=== PATIENT | male | born 1985 | race American Indian/Alaskan Native ===

== ENCOUNTER 2020-12-11 02:13 | Emergency (ER) | payer SELFPAY ==
[2020-12-11 02:30] VITALS: BP 149/102
--- NOTE | 2020-12-11 03:53 | Emergency Department Report ---
ED Male HPI - General Chief complaint: Urogenital-Male Stated complaint: TROUBLE URINATING BUMP ON PENIS Time Seen by Provider: 12/11/20 03:37 Source: patient Mode of arrival: Ambulatory Limitations: No Limitations - History of Present Illness Initial comments: Patient is a 35-year-old male that presents emergency room for dysuria. Patient states he has had a history of urinary tract infections and prostatitis. Patient states he is having the same symptoms. Patient states he has been urinary frequency as well as dysuria. Patient states the pain is worsening. Patient denies abdominal pain. Patient denies fever and chills. Patient denies chest pain shortness of breath. Patient denies recent travel. Patient denies recent international travel. Patient denies exposure to the novel coronavirus. Patient denies sick contacts. Patient denies fever and chills. Patient denies cough. Patient denies diarrhea. Patient denies coming in contact with anybody with symptoms of the novel coronavirus. MD Complaint: dysuria -: Sudden Quality: aching Consistency: constant, intermittent Improves with: rest Worsens with: urination dysuria. denies: discharge, swelling, mass, rash, urinary retention, blood in urine, fever, nausea/vomiting, incontinence - Related Data Sexually active: Yes Previous Rx's Medication Instructions Recorded Last Taken Type Ciprofloxacin HCl 500 mg PO BID 10 Days #20 tablet 12/11/20 Unknown Rx Phenazopyridine [Pyridium] 200 mg PO TID 2 Days #6 tab 12/11/20 Unknown Rx Tamsulosin [Flomax] 0.4 mg PO QDAY 10 Days #10 cap 12/11/20 Unknown Rx ED Review of Systems ROS: Stated complaint: TROUBLE URINATING BUMP ON PENIS Other details as noted in HPI Constitutional: denies: chills, fever Eyes: denies: eye pain, eye discharge, vision change ENT: denies: ear pain, throat pain Respiratory: denies: cough, shortness of breath, wheezing Cardiovascular: denies: chest pain, palpitations Endocrine: no symptoms reported Gastrointestinal: denies: abdominal pain, nausea, diarrhea Genitourinary: as per HPI, dysuria. denies: urgency Musculoskeletal: denies: back pain, joint swelling, arthralgia Skin: denies: rash, lesions Neurological: denies: headache, weakness, paresthesias Psychiatric: denies: anxiety, depression Hematological/Lymphatic: denies: easy bleeding, easy bruising ED Past Medical Hx - Past Medical History Previous Medical History?: No - Surgical History Past Surgical History?: No - Family History Family history: no significant - Social History Smoking Status: Never Smoker Substance Use Type: None - Medications Home Medications: Home Medications Medication Instructions Recorded Confirmed Last Taken Type Ciprofloxacin HCl 500 mg PO BID 10 Days #20 tablet 12/11/20 Unknown Rx Phenazopyridine [Pyridium] 200 mg PO TID 2 Days #6 tab 12/11/20 Unknown Rx Tamsulosin [Flomax] 0.4 mg PO QDAY 10 Days #10 cap 12/11/20 Unknown Rx ED Physical Exam - General Limitations: No Limitations General appearance: alert, in no apparent distress - Head Head exam: Present: atraumatic, normocephalic - Eye Eye exam: Present: normal appearance - ENT ENT exam: Present: mucous membranes moist - Neck Neck exam: Present: normal inspection - Respiratory Respiratory exam: Present: normal lung sounds bilaterally. Absent: respiratory distress - Cardiovascular Cardiovascular Exam: Present: regular rate, normal rhythm. Absent: systolic murmur, diastolic murmur, rubs, gallop - GI/Abdominal GI/Abdominal exam: Present: soft, normal bowel sounds - Rectal Rectal exam: Present: deferred - Extremities Exam Extremities exam: Present: normal inspection - Back Exam Back exam: Present: normal inspection - Neurological Exam Neurological exam: Present: alert, oriented X3 - Psychiatric Psychiatric exam: Present: normal affect, normal mood - Skin Skin exam: Present: warm, dry, intact, normal color. Absent: rash ED Course Vital Signs 12/11/20 02:28 Temperature 98.5 F Pulse Rate 101 H Respiratory 18 Rate Blood Pressure 149/102 O2 Sat by Pulse 99 Oximetry - Reevaluation(s) Reevaluation #1: I discussed all results and clinical findings with patient. I discussed plan of care with patient. Patient agrees with plan of care. Patient is stable for discharge. Patient will be discharged home. Patient given discharge instructions. Patient voiced understanding of discharge instructions. 12/11/20 04:58 ED Medical Decision Making - Medical Decision Making Patient is a 35-year-old male who presents emergency room with complaints of dysuria and urinary hesitancy. Patient has a history of UTI. Patient patient had a urinalysis done which was essentially negative. Patient clinical findings are consistent with prostatitis. Patient given an oral antibiotic. Patient given Flomax and Pyridium. Patient does not require any further emergency medical service. Patient not require inpatient service. Patient also complained of a penile bump and the patient was referred to urologist for further evaluation treatment. Patient stable for discharge. I discussed all results and clinical findings with patient. I discussed plan of care with patient. Patient agrees with plan of care. Patient is stable for discharge. Patient will be discharged home. Patient given discharge instructions. Patient voiced understanding of discharge instructions. - Differential Diagnosis UTI, prostatitis, dysuria, hesitancy Critical care attestation.: If time is entered above; I have spent that time in minutes in the direct care of this critically ill patient, excluding procedure time. ED Disposition Clinical Impression: Dysuria, Penile lump Prostatitis Qualifiers: Prostatitis type: acute Qualified Code(s): N41.0 - Acute prostatitis Disposition: 01 HOME / SELF CARE / HOMELESS Is pt being admited?: No Does the pt Need Aspirin: No Condition: Stable Instructions: Prostatitis, [id number] Additional Instructions: Patient to follow-up with primary care in 2 to 3 days. Patient to follow-up with urologist in 2 to 3 days. Patient to rest. Patient to increase water. Patient to take Tylenol or ibuprofen as needed for pain. Patient to take meds as directed. Patient to return to the ER if condition worsens, changes or new symptoms arise. Prescriptions: Ciprofloxacin HCl 500 mg PO BID 10 Days #20 tablet Tamsulosin [Flomax] 0.4 mg PO QDAY 10 Days #10 cap Phenazopyridine [Pyridium] 200 mg PO TID 2 Days #6 tab Referrals: AURELIA VIDAL MD [Primary Care Provider] - 2-3 Days JOSE FRANCISCO DIANA MD [Staff Physician] - 2-3 Days Time of Disposition: 05:02
[2020-12-11 04:31] LABS: Bilirubin,Urine NEG (Negative); Blood,Urine NEG (Negative); Color,Urine Yellow (Yellow); Protein,Urine <15 mg/dL mg/dL (Negative); WBC,Urine < 1.0 /HPF (0.0-6.0)
== END 2020-12-11 05:24 | disposition home or self-care (01) ==
LOC: ED 02:13
DX: N41.9 Inflammatory disease of prostate, unspecified (principal); N48.89 Other specified disorders of penis; R30.0 Dysuria
CPT/HCPCS: 81001; 99283